=== PATIENT | female | born 2005 | race Caucasian/White ===

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

== ENCOUNTER 2023-01-29 10:06 | Emergency (ER) | payer OTHER ==
[2023-01-29] MEDS ORDERED: Ibuprofen 800 MG TAB ONE (10:54)
[2023-01-29] MEDS ORDERED: predniSONE 20 MG TAB ONE (10:54)
[2023-01-29 12:12] LABS: SARS-CoV-2 NAA Rapid Test DETECTED (NotDetected)
== END 2023-01-29 12:37 | disposition home or self-care (01) ==
LOC: ERS 10:06
DX: U07.1 COVID-19 (principal); J02.9 Acute pharyngitis, unspecified
CPT/HCPCS: 87081; 87430; 99284; J7512

== ENCOUNTER 2023-02-14 15:22 | Emergency (ER) | payer OTHER | END 2023-02-14 17:05 | disposition home or self-care (01) | LOC: ERS 15:22 | DX: K08.89 Other specified disorders of teeth and supporting structures (principal) | CPT/HCPCS: 99282 ==

== ENCOUNTER 2023-12-15 18:19 | Emergency (ER) | payer BC ==
[2023-12-15] MEDS ORDERED: Acetaminophen 500 MG TAB ONE (18:51)
[2023-12-15 20:17] LABS: SARS-CoV-2 NAA Rapid Test Not Detected (NotDetected)
== END 2023-12-15 20:26 | disposition home or self-care (01) ==
LOC: ERS 18:19
DX: J10.1 Influenza due to other identified influenza virus with other respiratory manifestations (principal)
CPT/HCPCS: 87081; 87430; 99283

== ENCOUNTER 2024-05-19 21:13 | Emergency (ER) | payer BC ==
[2024-05-19] MEDS ORDERED: Metoclopramide HCl 10 MG (2 mL) VIAL ONE (22:14)
[2024-05-19] MEDS ORDERED: diphenhydrAMINE 50 MG/ML VIAL ONE (22:14)
[2024-05-19] MEDS ORDERED: Ketorolac Tromethamine 30 MG (1 mL) VIAL ONE (22:14)
[2024-05-19] MEDS ORDERED: Acetaminophen 500 MG TAB ONE (22:14)
[2024-05-19] MEDS ORDERED: methylPREDNISolone Sod Succ/PF 125 MG/2 ML VIAL ONE (22:14)
[2024-05-19 23:22] LABS: Bilirubin Negative (Negative); Blood, Urine Negative (Negative); CAUTI Indications for Culture Dysuria,urgency,freq; Clarity Clear (Clear); Glucose, Urine (Dipstick) Normal (Negative); Ketone, Urine Negative (Negative); Leukocyte Negative Leu/uL (Negative); Nitrite Negative (Negative); Protein, Urine (Dipstick) Negative (Neg-Trace); RBC/HPF 0-3 HPF (0-3); Specific Gravity, Urine 1.007 (1.002-1.036); Squamous Epithelial 0-3 HPF (0-3); Urobilinogen Normal mg/dL (Less than 2); WBC/HPF 0-3 HPF (0-3); pH, Urine 6.5 (5.0-9.0)
[2024-05-19 23:23] LABS: Bacteria/HPF 1+ HPF (None Seen); Pregnancy Test - Urine (BHCG) Negative (Negative); Pregu Control Background? CLEAR/WHITE (CLR/WHITE); Pregu Control Bar Appear? YES (CONTROL BAR); Specific Gravity 1.007 (1.002-1.036)
[2024-05-19 23:24] LABS: Urine Culture Reflex No No
== END 2024-05-19 23:40 | disposition home or self-care (01) ==
LOC: ERS 21:13
DX: R51.9 Headache, unspecified (principal)
CPT/HCPCS: 70450; 81001; 81025; 96361; 96365; 96375; J1200; J1885; J2765; J2930